=== PATIENT | male | born 2000 | race Two or more races ===

== ENCOUNTER 2024-09-20 00:36 | Emergency (ER) | payer BC, SELFPAY ==
[2024-09-20 00:37] VITALS: BMI 44.6
[2024-09-20 00:45] VITALS: BP 122/79; PULSE 98; RESP 18; TEMP 37.2; O2SAT 97
--- NOTE | 2024-09-20 00:48 | EKG_ITS ---
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
--- NOTE | 2024-09-20 00:48 | XR_ITS ---
Examination: PA lateral chest 2 views Technique: Upright PA lateral chest 2 views Exam date and time: September 20, 2024 at 0053 hrs. Indications: Chest pain coughing beginning today Findings: Normal heart size Lungs are clear. The osseous structures are intact Impression: No active disease
--- NOTE | 2024-09-20 00:48 | PD.EDRME ---
Rapid Medical Screening Exam RME Arrival date/time: 09/20/24 00:36 24 year old male present to ED for c/o of chest pain/cough. worsen today I have greeted and performed a focused initial assessment of this patient. A comprehensive ED assessment and evaluation of the patient, analysis of all test results, and completion of the medical decision making process will be conducted by additional ED providers. Chief Complaint: General Adult/Misc Complain Time Seen by Provider: 09/20/24 00:38 Vital signs: Vital Signs Temperature 98.9 F 09/20/24 00:45 Pulse Rate 98 09/20/24 00:45 Respiratory Rate 18 09/20/24 00:45 Blood Pressure 122/79 09/20/24 00:45 Pulse Oximetry (%) 97 09/20/24 00:45 Oxygen Delivery Method Room Air 09/20/24 00:45
[2024-09-20 01:10] LABS: Basophils % (Auto) 1 % (0-2.5); Eosinophils # (Auto) 0.1 Thou/mm3 (0.0-0.5); Eosinophils % (Auto) 1 % (0-10); Hemoglobin 15.2 g/dL (13.5-16.0); Immature Granulocytes % (Auto) 1 % (0-0); Immature Granulocytes Auto 0.05 Thou/mm3 (0.00-0.00); Lymphocytes # (Auto) 1.4 Thou/mm3 (1.0-4.8); Lymphocytes % (Auto) 17 % (10-50); Mean Corpuscular HGB Conc 35.3 g/dl (31.0-37.0); Mean Corpuscular Hemoglobin 28.6 pg (25.0-35.0); Mean Corpuscular Volume 81 fL (80-100); Monocytes # (Auto) 1.4 Thou/mm3 (0.0-0.8); Monocytes % (Auto) 16 % (0-12); Neutrophils # (Auto) 5.6 Thou/mm3 (1.8-7.7); Neutrophils % (Auto) 65 % (37-80); Nucleated Red Blood Cell % 0 /100 WBC (0); Platelet Count 229 Thou/mm3 (140-440); RDW Standard Deviation 37.7 fL (35.1-43.9); Red Blood Count 5.32 Miln/mm3 (4.50-5.90); White Blood Count 8.6 Thou/mm3 (3.8-10.6)
[2024-09-20 01:29] LABS: Alanine Aminotransferase 31 U/L (10-49); Albumin, Serum 4.7 gm/dL (3.5-5.0); Albumin/Globulin Ratio 1.7 (1.2-2.2); Alkaline Phosphatase 109 U/L (46-116); Anion Gap 9 (7-16); Aspartate Amino Transferase 28 U/L (0-34); BUN/Creatinine Ratio 18 Ratio (12-20); Bilirubin,Total 0.3 mg/dL (0.3-1.2); Blood Urea Nitrogen 18 mg/dL (9-23); Calcium 9.5 mg/dL (8.3-10.6); Calcium (Corrected) 9.5 mg/dL (8.5-10.1); Carbon Dioxide 24.3 mMol/L (20.0-31.0); Chloride 104 mMol/L (98-107); Estimated Creatinine Clearance 133.2 mL/min (>60); Globulin 2.7 gm/dL (2.3-3.5); Glucose 105 mg/dL (74-106); Osmolality,Calculated 275 (275-295); Potassium 4.1 mMol/L (3.4-5.1); Sodium 137 mMol/L (136-145); Total Protein 7.4 gm/dL (5.7-8.2); Troponin I < 0.020 ng/mL (0.0-0.045); eGFR > 60 See Note
--- NOTE | 2024-09-20 02:00 | EDNOTE_ITS ---
ED General RME/HPI General Chief complaint: General Adult/Misc Complain Stated complaint: LEFT CHEST PAIN, COUGHING SINCE YESTERDAY Time Seen by Provider: 09/20/24 00:38 Arrival date/time: 09/20/24 00:36 24 year old male present to emergency room with c/o of left chest pain for 1 day. pt report pain appeared after a coughing episode. Taken IBU today which improved the pain. LOCATION: Chest SEVERITY: Symptoms are described as being severe with limitations on activities of daily living CONTEXT: The patient is unable to identify any inciting events. DURATION/TIMING: The symptoms started approximately 1day ASSOCIATED SYMPTOMS: The patient is unable to identify any other associated symptoms. MODIFYING FACTORS: The patient is unable to identify any alleviating or aggravating symptoms. PERTINENT ROS: no fevers, no pleuritic pain, no ripping or tearing sensations, denies any lower extremity edema and no unilateral swelling, no shortness of breath no nausea,vomiting, diarrhea, no dizziness/headache no rash no loc/syncope episode no abd/back pain no REVIEW OF SYSTEMS: See History of Present Illness - with the exception of those mentioned in the history of present illness, all other systems reviewed and reported as negative GENERAL: In general the patient is awake, interactive, in an emergency department gurney. HEAD/EYES/EARS/NOSE/THROAT: normo-cephalic, atraumatic, mucus membranes are moist, anicteric, palpebral conjunctiva is pink, trachea is midline. CARDIOVASCULAR: regular rate and regular rhythm, no murmurs, heart sounds are not distant, strong pulses in all four extremities that are equal and symmetric bilateral upper and lower extremities, normal capillary refill. CHEST/PULMONARY: + chest wall tenderness, normal chest rise and fall, good air movement, clear to auscultation bilaterally, normal inspiratory to expiratory ratios without evidence of respiratory distress. NECK: No midline/Paraspinal tenderness, no step off ROM/Strenght intact No Kernig and bruzinski sign. No trauma ABDOMEN: soft, not tender, no masses appreciated BACK: normal range of motion without pain. NEUROLOGICAL: cranio-facial features are symmetric, moves all four extremities equally without obvious limitations or weakness. EXTREMITY: no tenderness to palpation over the long bones or large joints of the bilateral upper and lower extremities, no joint swelling, no joint erythema, no signs of trauma, no unilateral leg swelling and no peripheral edema. SKIN: warm, dry, well-perfused, no jaundice, no rash, no telangiectasias or petechia. PSYCH: calm, cooperative, no evidence of psychosis or agitation RME / HPI RME / HPI narrative: 09/20/24 00:36 24 year old male present to ED for c/o of chest pain/cough. worsen today I have greeted and performed a focused initial assessment of this patient. A comprehensive ED assessment and evaluation of the patient, analysis of all test results, and completion of the medical decision making process will be conducted by additional ED providers. Related Data Allergies Allergy/AdvReac Type Severity Reaction Status Date / Time No Known Allergies Allergy Verified 09/20/24 00:39 Course Course Course Narrative: Exam without evidence of volume overload so doubt heart failure. EKG without signs of active ischemia. Given the timing of pain to ER presentation, single troponin_ delta troponin_ was _ so doubt NSTEMI. Presentation not consistent with acute PE (Wells low risk _ PERC negative_),pneumothorax (not visualized on chest xr), thoracic aortic dissection, pericarditis, tamponade, pneumonia (no infectious symptoms, clear chest xr), myocarditis (no recent illness, neg trop). HEART score:0,.? ; discharge patient home with PMD follow up in 2 days? Quality Measures none Orders Category Date Time Status EKG (ED ONLY) *Do not use* NOW Care 09/20/24 00:48 Completed EKG (ED Only) Stat Exams 09/20/24 00:48 Draft XR chest 2V Stat Exams 09/20/24 00:48 Taken CBC Stat Lab 09/20/24 01:03 Completed CMP [Comprehensive Metabolic Panel] Stat Lab 09/20/24 01:03 Completed Troponin I Stat Lab 09/20/24 01:03 Completed Ketorolac Inj [Toradol Inj] Med 09/20/24 02:00 Discontinued 30 mg IM X1 ONE Vital Signs Vital signs: Vital Signs Temperature 98.9 F 09/20/24 00:45 Pulse Rate 98 09/20/24 00:45 Respiratory Rate 18 09/20/24 00:45 Blood Pressure 122/79 09/20/24 00:45 Pulse Oximetry (%) 97 09/20/24 00:45 Oxygen Delivery Method Room Air 09/20/24 00:45 Procedures -ED EKG Interpretation #1: Date of EK09/20/24 Rate: 108 Interpretation: Reviewed by me EKG Impression: No ischemic changes and Sinus tachycardia MDM Patient data External records reviewed:: None Clinical information provided by:: none Social determinants that could affect healthcare access:: none Patient has the following chronic illnesses:: none How is presenting disease/condition affected by chronic disease/condition?: no chronic disease Evaluation data The following diagnostics were reviewed and interpreted by me:: lab results, radiology exam(s) and EKG tracing(s) Lab and/or radiology exams considered but not ordered:: none Interpretation Summary: basic labs, negative trop negative cxr: nad wet read Medications Medications considered but not ordered:: none Medication administrations:: Medication Administration History Discontinued Medications Ketorolac Tromethamine (Ketorolac Inj 60 Mg/2 Ml Vial) 30 mg IM X1 ONE Stop: 09/20/24 02:01 as stated above Consultations Consultation(s) initiated? (list below): No Diagnosis Differential Diagnosis ED Complaint MDM: as stated in course Most likely diagnosis given after review of the tests above:: chest wall pain Admission Indicated Admission indicated?: not indicated Explain why admission is indicated or not indicated:: n/a Admission Request Was there a request for admission?: No Disposition Plan Disposition Plan: Discharge Discharge Attestation Discharge Attestation: The patient and all family members were given an opportunity to ask questions and understood the discharge instructions. Discharge instructions specifically effects, indications for sooner follow up or return to the emergency department, and the expected course of current diagnosis. Patient condition: Stable Medical Decision Making Differential Diagnosis Differential Diagnosis: as stated in course Lab Data 09/20/24 01:03 09/20/24 01:03 Labs: Lab Results 09/20/24 Range/Units 01:03 WBC 8.6 (3.8-10.6) Thou/mm3 RBC 5.32 (4.50-5.90) Miln/mm3 Hgb 15.2 (13.5-16.0) g/dL Hct 43.0 (41.0-53.0) % MCV 81 (80-100) fL MCH 28.6 (25.0-35.0) pg MCHC 35.3 (31.0-37.0) g/dl RDW Std Deviation 37.7 (35.1-43.9) fL Plt Count 229 (140-440) Thou/mm3 Neut % (Auto) 65 (37-80) % Lymph % (Auto) 17 (10-50) % [place] % (Auto) 16 H (0-12) % Eos % (Auto) 1 (0-10) % Baso % (Auto) 1 (0-2.5) % Neut # (Auto) 5.6 (1.8-7.7) Thou/mm3 Lymph # (Auto) 1.4 (1.0-4.8) Thou/mm3 [place] # (Auto) 1.4 H (0.0-0.8) Thou/mm3 Eos # (Auto) 0.1 (0.0-0.5) Thou/mm3 Baso # (Auto) 0.0 (0.0-0.2) Thou/mm3 Immature Gran # (Auto) 0.05 H (0.00-0.00) Thou/mm3 Absolute Nucleated RBC 0.00 (0.00-0.00) Thou/mm3 Immature Gran % 1 H (0-0) % Nucleated RBC % 0 (0) /100 WBC Sodium 137 (136-145) mMol/L Potassium 4.1 (3.4-5.1) mMol/L Chloride 104 (98-107) mMol/L Carbon Dioxide 24.3 (20.0-31.0) mMol/L Anion Gap 9 (7-16) BUN 18 (9-23) mg/dL Creatinine 1.0 (0.6-1.3) mg/dL Estim Creat Clear Calc 133.2 (>60) mL/min eGFR > 60 (60 - ) See Note BUN/Creatinine Ratio 18 (12-20) Ratio Glucose 105 (74-106) mg/dL Calculated Osmolality 275 (275-295) Calcium 9.5 (8.3-10.6) mg/dL Corrected Calcium 9.5 (8.5-10.1) mg/dL Total Bilirubin 0.3 (0.3-1.2) mg/dL AST 28 (0-34) U/L ALT 31 (10-49) U/L Alkaline Phosphatase 109 (46-116) U/L Troponin I < 0.020 (0.0-0.045) ng/mL Total Protein 7.4 (5.7-8.2) gm/dL Albumin 4.7 (3.5-5.0) gm/dL Globulin 2.7 (2.3-3.5) gm/dL Albumin/Globulin Ratio 1.7 (1.2-2.2) Discharge Plan Plan Patient Disposition: HOME (Self Care) Health Concerns: Follow with PMD as directed Take tylenol or motrin as need Return to ED if sx worsen Prescriptions/Referrals Referrals: No Primary/Family,Physician [Primary Care Provider] - In 1 week Problem List Clinical Impression: Acute chest wall pain Patient/Caregiver Discharge Instructions Education Materials: ED Chest Pain, Noncardiac Print Language: Armenian Stand Alone Forms: Purnima Award Info., Patient Portal Info Letter
[2024-09-20] MEDS: KETOROLAC INJ 60 MG/2 ML VIAL 30 MG IM (02:17)
[2024-09-20 02:22] VITALS: RESP 18
== END 2024-09-20 02:23 | disposition home or self-care (01) ==
PROVIDERS: Physician Assistant; Emergency Provider Emergency Medicine
DX: R07.89 Other chest pain (principal)
CPT/HCPCS: 36415; 71046; 80053; 84484; 85025; 93005; 96372; 99283; J1885

== ENCOUNTER 2024-10-23 19:27 | Emergency (ER) | payer BC, SELFPAY ==
[2024-10-23 19:34] VITALS: BP 117/69; PULSE 138; RESP 17; TEMP 36.7; O2SAT 98
[2024-10-23 19:36] VITALS: BMI 40.8
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
== END 2024-10-23 20:00 ==
PROVIDERS: Emergency Provider Emergency Medicine; PCP Family Medicine
DX: Z02.89 Encounter for other administrative examinations (principal); Z04.1 Encounter for examination and observation following transport accident
CPT/HCPCS: 99281